=== PATIENT | female | born 1945 | race Caucasian/White ===

== ENCOUNTER 2019-01-18 06:50 | Day surgery (SDC) | payer MEDICARE, BC ==
[~2019-01-18 06:50] MED LIST: CLINDAMYCIN 150 MG/ML SOL ONE
[2019-01-18] MEDS ORDERED: LIDOCAINE HCL 1% MPF 30 SOL ONE (07:37)
[2019-01-18] MEDS ORDERED: PROPOFOL 500 MG/50 ML EMU IV ONE ×2 (07:37)
[2019-01-18] MEDS ORDERED: PROPOFOL 10 MG/ML 200 MG/20 ML EMU IV ONE (09:05)
[2019-01-18 09:50] VITALS: TEMP 97.9; O2SAT 100
[2019-01-18 09:59] VITALS: BP 164/79; PULSE 63; RESP 20
== END 2019-01-18 10:12 | disposition home or self-care (01) | DRG 951 ==
LOC: SURG 06:50
PROVIDERS: ATTEND Internal Medicine Gastroenterology
DX: Z12.11 Encounter for screening for malignant neoplasm of colon (principal); Q39.9 Congenital malformation of esophagus, unspecified; K22.10 Ulcer of esophagus without bleeding; Z86.010 Personal history of colon polyps; R10.9 Unspecified abdominal pain; K59.00 Constipation, unspecified; K64.4 Residual hemorrhoidal skin tags; D12.0 Benign neoplasm of cecum; K29.70 Gastritis, unspecified, without bleeding; K31.7 Polyp of stomach and duodenum; K63.89 Other specified diseases of intestine; K64.8 Other hemorrhoids; E11.9 Type 2 diabetes mellitus without complications; L53.9 Erythematous condition, unspecified
CPT/HCPCS: 82962; J3490; J2001; J2704